=== PATIENT | female | born 1960 | race African-American/Black ===

== ENCOUNTER 2019-04-12 12:02 | Emergency (ER) | payer OTHER ==
[~2019-04-12] VITALS: Ht 165.1 cm; Wt 105.2 kg
[2019-04-12] MEDS ORDERED: NAPROXEN 500 MG TABLET PO STA (12:57)
[2019-04-12] MEDS ORDERED: CYCLOBENZAPRINE 10 MG TABLET. PO ONE (13:00)
[2019-04-12] MEDS ORDERED: HYDROcodone/APAP 5/325MG 1 TAB TABLET PO ONE (13:00)
--- NOTE | 2019-04-12 13:36 | RAD ---
EXAM: Lumbar spine, 3 views. HISTORY: Pain. COMPARISON: None. FINDINGS: 3 views of the lumbar spine are obtained. There is no significant listhesis. The vertebral bodies are normal in height and the disc spaces are preserved. There is minimal endplate remodeling. There is left nephrolithiasis. There are pelvic follicular center may be a small calcified uterine fibroid. IMPRESSION: 1. No acute osseous finding. Minimal multilevel endplate change. 2. Left nephrolithiasis. Electronically signed by: Jaclyn Mcpherson MD (04/12/2019 1:33 PM) [facility]
[2019-04-12 13:54] LABS: BILIRUBIN,URINE NEGATIVE (NEG); CLARITY,URINE CLOUDY; COLOR,URINE YELLOW; NITRITE,URINE NEGATIVE (NEG); PH,URINE 5.5; PROTEIN,URINE NEGATIVE (NEG-TRACE); UROBILINOGEN,URINE 0.2 mg/dL (0.2 mg/dL)
[2019-04-12 14:01] LABS: RBC,URINE 0 /HPF (0-2)
[2019-04-12 14:02] LABS: BACTERIA,URINE MODERATE /HPF (0-FEW); SQUAMOUS EPITHELIAL CELL,UR MANY /LPF; TRICHOMONAS,URINE PRESENT; WBC,URINE 20-40 /HPF (0-4)
[2019-04-12] MEDS ORDERED: DICL50TA2 PO (14:38)
[2019-04-12] MEDS ORDERED: CYCL10TA2 PO (14:38)
[2019-04-12] MEDS ORDERED: CEPH500T PO (14:38)
--- NOTE | 2019-04-12 14:38 | PHYS DOC ---
Past Medical History Past Medical History: No Pertinent History, CVA Additional Past Medical Histor: PT HAS NOT SEEN A DOCTOR FOR YEARS AND DOES NOT TAKE ANY MEDICATION Past Surgical History: No Surgical History Alcohol Use: None Drug Use: None Adult General Chief Complaint Chief Complaint: BACK PAIN - NO INJURY HPI HPI Patient is a 58 year old female with history of CVA with left-sided deficits and speech deficits/slurred speech, who presents to the ED today complaining of 8 out of 10 throbbing left low back pain for 3 weeks. She reports falling down at some point in the last 3 weeks. Patient is in the ED with the family member who reports due to her stroke she is to follow-up note. Patient is also reporting dysuria. Denies anything specific exacerbating or relieving her pain. Denies any fever, hematuria, nausea or vomiting. Patient reports her pain is worse when she is walking. Denies anything specifically related relieving the pain. Review of Systems Review of Systems Constitutional: Denies fever or chills [] GI: Denies abdominal pain, nausea, vomiting, bloody stools or diarrhea [] : Denies dysuria or hematuria [] Musculoskeletal: Reports left low back pain Integument: Denies rash or skin lesions [] Neurologic: Denies headache, focal weakness or sensory changes [] All other systems were reviewed and found to be within normal limits, except as documented in this note. Current Medications Current Medications Current Medications Medications (Trade) Dose Ordered Sig/Ida Start Time Stop Time Status Last Admin Dose Admin Acetaminophen/ Hydrocodone Bitart (Lortab 5/325) 2 tab 1X ONCE 04/12/19 13:00 04/12/19 13:01 DC 04/12/19 13:07 2 TAB Azithromycin (Zithromax) 1,000 mg 1X ONCE 04/12/19 14:45 04/12/19 14:46 Ceftriaxone Sodium (Rocephin Im) 250 mg 1X ONCE 04/12/19 14:45 04/12/19 14:46 Cyclobenzaprine HCl (Flexeril) 10 mg 1X ONCE 04/12/19 13:00 04/12/19 13:01 DC 04/12/19 13:06 10 MG Metronidazole (Flagyl) 2,000 mg 1X ONCE 04/12/19 14:45 04/12/19 14:46 Naproxen (Naprosyn) 500 mg 1X STAT 04/12/19 12:57 04/12/19 13:01 DC 04/12/19 13:07 500 MG Allergies Allergies Allergies Coded Allergies Type Severity Reaction Last Updated Verified No Known Drug Allergies 06/04/18 No Physical Exam Physical Exam Constitutional: Well developed, well nourished, no acute distress, non-toxic appearance. [] HENT: Normocephalic, atraumatic, bilateral external ears normal, oropharynx moist, no oral exudates, nose normal. [] Eyes: PERRLA, EOMI, conjunctiva normal, no discharge. [] Neck: Normal range of motion, no tenderness, supple, no stridor. [] Cardiovascular:Heart rate regular rhythm, no murmur [] Lungs & Thorax: Bilateral breath sounds clear to auscultation [] Abdomen: Bowel sounds normal, soft, no tenderness, no masses, no pulsatile masses. [] Skin: Warm, dry, no erythema, no rash. [] Back: Tenderness on palpation of paraspinal muscle tenderness of the left lower lumbar spine, no midline lumbar spine tenderness, no CVA tenderness. [] Extremities: No tenderness, no cyanosis, no clubbing, ROM intact, no edema. [] Neurologic: Alert and oriented X 3, normal motor function, normal sensory functi on, no focal deficits noted. chronic slurred speech Psychologic: Affect normal, judgement normal, mood normal. [] Current Patient Data Vital Signs Vital Signs Date Time Temp Pulse Resp B/P (MAP) Pulse Ox O2 Delivery O2 Flow Rate FiO2 04/12/19 12:26 98.3 98 16 194/124 (147) 99 Room Air 98.3 Lab Values Laboratory Tests Test 04/12/19 12:37 Urine Collection Type Unknown Urine Color Yellow Urine Clarity Cloudy Urine pH 5.5 Urine Specific [place]ney 1.025 Urine Protein Negative mg/dL (NEG-TRACE) Urine Glucose (UA) Negative mg/dL (NEG) Urine Ketones (Stick) Negative mg/dL (NEG) Urine Blood Small (NEG) Urine Nitrite Negative (NEG) Urine Bilirubin Negative (NEG) Urine Urobilinogen Dipstick 0.2 mg/dL (0.2 mg/dL) Urine Leukocyte Esterase Large (NEG) Urine RBC 0 /HPF (0-2) Urine WBC 20-40 /HPF (0-4) Urine Squamous Epithelial Cells Many /LPF Urine Bacteria Moderate /HPF (0-FEW) Urine Trichomonas Present EKG EKG [] Radiology/Procedures Radiology/Procedures []PROCEDURE: LUMBAR SPINE 2-3V EXAM: Lumbar spine, 3 views. HISTORY: Pain. COMPARISON: None. FINDINGS: 3 views of the lumbar spine are obtained. There is no significant listhesis. The vertebral bodies are normal in height and the disc spaces are preserved. There is minimal endplate remodeling. There is left nephrolithiasis. There are pelvic follicular center may be a small calcified uterine fibroid. IMPRESSION: 1. No acute osseous finding. Minimal multilevel endplate change. 2. Left nephrolithiasis. Electronically signed by: Jaclyn Leal MD (04/12/2019 1:33 PM) [place] [id number] DICTATED and SIGNED BY: JACLYN LEAL MD DATE: 04/12/19 6291 Course & Med Decision Making Course & Med Decision Making Pertinent Labs and Imaging studies reviewed. (See chart for details) This is a 58-year-old female patient presenting to the ED today complaining of left low back pain for 3 weeks. Patient also reports falling down in the last 3 weeks. Patient also reports dysuria. Lumbar spine x-rays are negative for any acute findings but noted for nephrolithiasis on the left. Urine analysis is noted for UTI and Trichomonas. Patient was given standard STD treatment in the ED as well as a patient. Discharged with cephalexin. Follow-up with PCP in 1-2 weeks. Dragon Disclaimer Dragon Disclaimer This electronic medical record was generated, in whole or in part, using a voice recognition dictation system. Departure Departure Impression: Primary Impression: Low back pain Additional Impressions: Urinary tract infection Trichomonas infection Disposition: 01 HOME, SELF-CARE Condition: STABLE Referrals: NO PCP (PCP) follow up with your doctor in one week MARIO FRANKLIN MD You can follow up with Dr. Franklin as a primary care doctor if you do not have one Patient Instructions: Back Pain, Adult, Trichomoniasis, Urinary Tract Infection Additional Instructions: You were evaluated in the emergency room for low back pain. You were also noted to have urinary tract infection and Trichomonas. Trichomonas is a sexually transmitted disease meaning you had intercourse with somebody that has it. Please contact all your sex partners, let them know you were treated for STDs and ask them to seek treatment too. Scripts Cephalexin (CEPHALEXIN) 500 Mg Tablet 1 TAB PO BID, #14 TAB Prov: DENICE MISHRA APRN 04/12/19 Cyclobenzaprine Hcl (CYCLOBENZAPRINE HCL) 10 Mg Tablet 1 TAB PO TID, #30 TAB Prov: DANICADENICE APRN 04/12/19 Diclofenac Potassium (DICLOFENAC POTASSIUM) 50 Mg Tablet 1 TAB PO BID, #14 TAB 0 Refills Prov: DENICE MISHRA APRN 04/12/19 Problem Qualifiers Primary Impression: Low back pain Chronicity: acute Back pain laterality: left Sciatica presence: without sciatica Qualified Codes: M54.5 - Low back pain Additional Impressions: Urinary tract infection Urinary tract infection type: site unspecified Hematuria presence: without hematuria Qualified Codes: N39.0 - Urinary tract infection, site not specified DENICE MISHRA APRN Apr 12, 2019 14:38
[2019-04-12] MEDS ORDERED: AZITHROMYCIN 250 MG TABLET. PO ONE (14:45)
[2019-04-12] MEDS ORDERED: cefTRIAXone IM 250 MG VIAL IM ONE (14:45)
[2019-04-12] MEDS ORDERED: metroNIDAZOLE 500 MG TABLET PO ONE (14:45)
[2019-04-12 14:48] VITALS: BP 188/82
== END 2019-04-12 14:47 | disposition home or self-care (01) ==
LOC: ER 12:02
DX: N39.0 Urinary tract infection, site not specified (principal); R47.81 Slurred speech; Z86.73 Personal history of transient ischemic attack (TIA), and cerebral infarction without residual deficits
CPT/HCPCS: 72100; 81001; 87086; 87186; 96372; 99285; J0696; Q0144; 99284

== ENCOUNTER 2019-08-30 08:54 | Emergency (ER) | payer OTHER ==
[~2019-08-30] VITALS: Ht 165.1 cm; Wt 100.0 kg
[~2019-08-30 08:54] MED LIST: CEPH500T PO; CYCL10TA2 PO; DICL50TA2 PO
[2019-08-30] MEDS ORDERED: cloNIDine HCL 0.1 MG TABLET PO ONE (09:15)
[2019-08-30 09:23] LABS: BASO % 1 % (0-3); EOS # 0.1 x10^3/uL (0.0-0.7); EOS % 3 % (0-3); HEMATOCRIT 41.7 % (36.0-47.0); HEMOGLOBIN 13.6 g/dL (12.0-15.5); LYMPH # 1.5 x10^3/uL (1.0-4.8); LYMPH % 45 % (24-48); MEAN CORPUSCULAR HEMOGLOBIN 27 pg (25-35); MEAN CORPUSCULAR HGB CONC 33 g/dL (31-37); MEAN CORPUSCULAR VOLUME 81 fL (79-100); MONO # 0.3 x10^3/uL (0.0-1.1); MONO % 9 % (0-9); NEUT # 1.4 x10^3/uL (1.8-7.7); NEUT % 43 % (31-73); PLATELET COUNT 302 x10^3/uL (140-400); RED BLOOD COUNT 5.15 x10^6/uL (3.50-5.40); RED CELL DISTRIBUTION WIDTH 14.2 % (11.5-14.5); WHITE BLOOD COUNT 3.4 x10^3/uL (4.0-11.0)
[2019-08-30 09:31] LABS: CALCIUM 9.1 mg/dL (8.5-10.1); CREATININE 0.8 mg/dL (0.6-1.0); GFR 89.1; POTASSIUM 3.4 mmol/L (3.5-5.1)
--- NOTE | 2019-08-30 09:35 | EKG ---
[facility] [address] [place] [address] Test Date: 2019-08-30 Test Time: 09:10:35 Pat Name: DIANELYS PINO Department: Room: Gender: F Research Pharmacist: : 1960 Requested By: JAY PARRISH Order Number: [id number] Reading MD: Gavin Flores MD Measurements Intervals [place] Rate: 85 P: MI: QRS: 201 QRSD: 80 T: 63 QT: 382 QTc: 460 Interpretive Statements SR PROBABLE LEAD MISPLACEMENT NON-SPECIFIC ST/T CHANGES Electronically Signed On 08-30-2019 12:08:30 CDT by Gavin Flores MD
[2019-08-30 09:36] LABS: ALBUMIN 3.6 g/dL (3.4-5.0); ALBUMIN/GLOBULIN RATIO 0.8 (1.0-1.7); TOTAL BILIRUBIN 0.4 mg/dL (0.2-1.0); TOTAL PROTEIN 8.2 g/dL (6.4-8.2)
--- NOTE | 2019-08-30 09:49 | RAD ---
CHEST AP ONLY Clinical History: Dyspnea Technique: AP view of the chest was obtained at 08/30/2019 9:13 AM. Comparison: June 04, 2018. Findings: The cardiomediastinal silhouette is normal. The pulmonary vasculature is normal. The lungs and pleural margins are clear. Impression: No evidence of an acute cardiopulmonary process. Electronically signed by: Ky Yip III, MD (08/30/2019 9:47 AM) [id number]
[2019-08-30] MEDS ORDERED: LABETALOL 20 MG/4 ML DISP.SYRIN. IVP ONE ×2 (10:00→11:00)
--- NOTE | 2019-08-30 10:43 | RAD ---
CT HEAD INDICATION: Headache COMPARISON: 06/04/2018 Exposure: One or more of the following individualized dose reduction techniques were utilized for this examination: 1. Automated exposure control 2. Adjustment of the mA and/or kV according to patient size 3. Use of iterative reconstruction technique TECHNIQUE: 5 mm contiguous axial images were obtained from the skull base to the vertex in both bone and soft tissue algorithm. FINDINGS: Mild bilateral periventricular white matter hypodensities likely chronic small vessel ischemic disease. No evidence of acute intracranial hemorrhage. No extra-axial fluid collections. No mass effect or midline shift. Ventricular size is appropriate. Basal cisterns are patent. No fractures identified.Bowie-white differentiation is preserved.Globes and orbits are within normal limits. Small mucous retention cyst or polyp identified in the left maxillary sinus. IMPRESSION: No acute intracranial findings. Electronically signed by: Gerámn Mixon MD (08/30/2019 10:40 AM) [id number]
[2019-08-30] MEDS ORDERED: AMLO10TA4 PO (10:54)
[2019-08-30 11:43] VITALS: BP 121/66
--- NOTE | 2019-08-30 13:00 | PHYS DOC ---
Past Medical History Past Medical History: CVA, Hypertension Additional Past Medical Histor: PT HAS NOT SEEN A DOCTOR FOR YEARS AND DOES NOT TAKE ANY MEDICATION Past Surgical History: No Surgical History Smoking Status: Never Smoker Alcohol Use: Rarely Drug Use: None Adult General Chief Complaint Chief Complaint: MULTIPLE COMPLAINTS HPI HPI Patient is a 58 year old -[place] female with history of stroke and hypertension who is been off all medications for greater than a year due to lack of primary care follow-up who presents with headache and elevation of blood pressure. Patient reports diffuse frontal headache for the past 2 days. Headache was not a corrupt onset and is not the worst headache of the patient's life. No medications or therapies taken prior to ED arrival. Patient denies nausea, vomiting, neck pain, sinus pain, tenderness. Denies dizziness, no extremity weakness or loss of sensation. Patient noted to be hypertensive 200s over 140s. Patient is unsure are unaware of what her normal blood pressure range. Denies chest pain palpitations, shortness of breath, wheeze leg swelling decreased urinary output. No drugs or alcohol. No other acute symptoms or complaints. [] Review of Systems Review of Systems ROS as per HPI. All other systems were reviewed and found to be within normal limits, except as documented in this note. Current Medications Current Medications Current Medications Medications (Trade) Dose Ordered Sig/Ida Start Time Stop Time Status Last Admin Dose Admin Clonidine HCl (Catapres) 0.2 mg 1X ONCE 08/30/19 09:15 08/30/19 09:16 DC 08/30/19 09:21 0.2 MG Labetalol HCl (Normodyne Iv Push) 20 mg 1X ONCE 08/30/19 11:00 08/30/19 11:01 DC 08/30/19 11:17 20 MG Allergies Allergies Allergies Coded Allergies Type Severity Reaction Last Updated Verified No Known Drug Allergies 06/04/18 No Physical Exam Physical Exam Constitutional: Well developed, well nourished, no acute distress, non-toxic appearance. [] HENT: Normocephalic, atraumatic, bilateral external ears normal, oropharynx moist, nose normal. [] Eyes: PERRLA, EOMI, conjunctiva normal. [] Neck: Normal range of motion. [] Cardiovascular:Heart rate regular rhythm, no murmur. [] Lungs & Thorax: Bilateral breath sounds clear to auscultation [] Abdomen: Bowel sounds normal, soft, no tenderness. [] Skin: Warm, dry. [] Back: No tenderness. [] Extremities: No tenderness,no edema. [] Neurologic: Alert and oriented X 3, normal motor function, normal sensory function, no focal deficits noted. [] Psychologic: Affect normal, judgement normal, mood normal. [] Current Patient Data Vital Signs Vital Signs Date Time Temp Pulse Resp B/P (MAP) Pulse Ox O2 Delivery O2 Flow Rate FiO2 08/30/19 11:43 62 21 121/66 (84) 99 Room Air 08/30/19 09:18 98.4 98.4 Lab Values Laboratory Tests Test 08/30/19 09:15 White Blood Count 3.4 x10^3/uL (4.0-11.0) L Red Blood Count 5.15 x10^6/uL (3.50-5.40) Hemoglobin 13.6 g/dL (12.0-15.5) Hematocrit 41.7 % (36.0-47.0) Mean Corpuscular Volume 81 fL (79-100) Mean Corpuscular Hemoglobin 27 pg (25-35) Mean Corpuscular Hemoglobin Concent 33 g/dL (31-37) Red Cell Distribution Width 14.2 % (11.5-14.5) Platelet Count 302 x10^3/uL (140-400) Neutrophils (%) (Auto) 43 % (31-73) Lymphocytes (%) (Auto) 45 % (24-48) Monocytes (%) (Auto) 9 % (0-9) Eosinophils (%) (Auto) 3 % (0-3) Basophils (%) (Auto) 1 % (0-3) Neutrophils # (Auto) 1.4 x10^3/uL (1.8-7.7) L Lymphocytes # (Auto) 1.5 x10^3/uL (1.0-4.8) Monocytes # (Auto) 0.3 x10^3/uL (0.0-1.1) Eosinophils # (Auto) 0.1 x10^3/uL (0.0-0.7) Basophils # (Auto) 0.0 x10^3/uL (0.0-0.2) Sodium Level 138 mmol/L (136-145) Potassium Level 3.4 mmol/L (3.5-5.1) L Chloride Level 102 mmol/L (98-107) Carbon Dioxide Level 26 mmol/L (21-32) Anion Gap 10 (6-14) Blood Urea Nitrogen 12 mg/dL (7-20) Creatinine 0.8 mg/dL (0.6-1.0) Estimated GFR (Cockcroft-Gault) 89.1 BUN/Creatinine Ratio 15 (6-20) Glucose Level 104 mg/dL (70-99) H Calcium Level 9.1 mg/dL (8.5-10.1) Total Bilirubin 0.4 mg/dL (0.2-1.0) Aspartate Amino Transferase (AST) 16 U/L (15-37) Alanine Aminotransferase (ALT) 17 U/L (14-59) Alkaline Phosphatase 64 U/L (46-116) Troponin I Quantitative < 0.017 ng/mL (0.000-0.055) XO-Eoo-X-Type Natriuretic Peptide 55 pg/mL (0-124) Total Protein 8.2 g/dL (6.4-8.2) Albumin 3.6 g/dL (3.4-5.0) Albumin/Globulin Ratio 0.8 (1.0-1.7) L Laboratory Tests 08/30/19 09:15 Laboratory Tests 08/30/19 09:15 EKG EKG EKG: reviewed[] Radiology/Procedures Radiology/Procedures CT head: reviewed[] Course & Med Decision Making Course & Med Decision Making Pertinent Labs and Imaging studies reviewed. (See chart for details) [Multiple doses of antihypertensive medications given in ED with significant improvement. Patient resting comfortably and headache free. No neurologic deficits on exam. CT head negative. Will start patient on home blood pressure medications with instructions to follow-up with PCP next week for further management. Return precautions reviewed. Patient verbalizes understanding and agreement discharge instructions prior to departure.] Dragon Disclaimer Dragon Disclaimer This electronic medical record was generated, in whole or in part, using a voice recognition dictation system. Departure Departure Impression: Primary Impression: Accelerated hypertension Additional Impression: Headache Disposition: HOME, SELF-CARE Condition: STABLE Patient Instructions: Hypertension Additional Instructions: Please check daily blood pressure and take Tylenol as needed for headache and newly prescribed blood pressure medication as directed. Follow-up with local PCP in 1 week for reevaluation. Return to the ED if new or worsening symptoms. Scripts Amlodipine Besylate (NORVASC) 10 Mg Tablet 10 MG PO DAILY, #30 TAB Prov: JAY PARRISH DO 08/30/19 Problem Qualifiers JAY PARRISH DO August 30, 2019 13:00
== END 2019-08-30 11:56 | disposition home or self-care (01) ==
LOC: ER 08:54
DX: I10 Essential (primary) hypertension (principal); R51 Headache; Z86.73 Personal history of transient ischemic attack (TIA), and cerebral infarction without residual deficits
CPT/HCPCS: 36415; 70450; 71045; 80053; 83880; 84484; 85025; 93005; 96374; 96376; 99285; J3490